=== PATIENT | female | born 1970 | race Caucasian/White ===

== ENCOUNTER 2017-10-10 13:31 | Emergency (ER) | payer SELFPAY ==
[~2017-10-10] VITALS: Ht 170.2 cm; Wt 61.4 kg
[~2017-10-10 13:31] MED LIST: ACETAMINOPHEN W1 TA6 PO; AMOXICILLIN 50500 MG PO; AMOXICILLIN 8751 TAB PO; AMOXICILLIN875 MG PO; ASPIRIN E.C. 8181 MG PO; ATIVAN 0.50.5 MG/TAB PO; ATIVAN1 MG PO; CELEXA; CIPRO 500MG TA500 MG PO; DESYREL 50MG50 MG PO; DILAUDID 2MG TAB2 MG PO; DILAUDID 4MG TAB4 MG PO; ELTROXIN PO; FLEXERIL 1010 MG/TAB PO; FLEXERIL10 MG PO; IBU-4400 MG PO; KLONOPIN 1MG1 MG PO; LEVAQUIN 750MG750 MG PO; LEVOTHYROXIN0.025 MG PO; LEVOTHYROXIN0.075 MG PO; LORTAB 5/500 501 TAB PO; METOPROLOL25 MG PO; METRONIDAZOLE500 MG PO; MVI; NO HOME MEDICATIONS; NORCO 325 MG-51 TA1 PO; NORCO 325 MG-51 TAB PO; NORCO 325 MG-7.1 TAB PO; OXYCODONE5 MG PO; PAXIL 20MG20 MG PO; PERCOCET 325 MG1 TA2 PO; PERCOCET 500 MG1 TAB PO; PHENERGAN 25 TA25 MG PO; SEROQUEL 1100 MG/TAB PO; TOPAMAX200 MG PO; TOPAMAX25 M1 PO; TOPAMAX50 MG PO; TRAMADOL50 MG PO; TYLENOL #3 301 UDTAB PO; ULTRAM 50MG TAB50 MG PO; ULTRAM ER100 MG PO; XANAX0.25 MG PO; XANAX0.5 MG PO; ZOFRAN ODT4 MG PO; ZYPREXA 5MG5 MG PO
[2017-10-10 13:37] VITALS: TEMP 97.4
[2017-10-10 14:00] LABS: COLLECTION METHOD CLEAN CATCH
[2017-10-10 14:13] LABS: PH 6 (5-8); SQUAMOUS EPITHELIAL 0-2 /hpf; URINE APPEARANCE Hazy; URINE BACTERIA None Seen /hpf; URINE BILIRUBIN Negative (NEGATIVE); URINE BLOOD 3+ (NEGATIVE); URINE COLOR Yellow; URINE GLUCOSE Negative (NEGATIVE); URINE KETONE Negative (NEGATIVE); URINE LEUKOCYTE ESTERASE Negative (NEGATIVE); URINE NITRATE Negative (NEGATIVE); URINE PROTEIN(semi-quant) Negative (NEGATIVE); URINE RBC 20-50 /hpf; URINE UROBILINOGEN Negative (NEGATIVE)
[2017-10-10 14:21] LABS: BASO # 0.1 (0.0-0.2); BASO % 1.1 % (0.0-2.0); EOS # 0.1 (0.0-0.7); EOS % 1.8 % (0-4.0); GRAN # 4.8 (1.4-6.5); GRAN % 66.5 % (42.2-75.2); HEMATOCRIT 46.1 % (37.0-47.0); HEMOGLOBIN 15.8 g/dl (12.5-16.0); LYMPH # 1.5 (1.2-3.4); LYMPH % 20.5 % (20.0-51.0); MEAN CELL VOLUME 99 fl (80.0-100.0); MEAN CORPUSCULAR HEMOGLOBIN 34 pg (27.0-31.0); MEAN CORPUSCULAR HGB CONC 34 g/dl (33.0-37.0); MEAN PLATELET VOLUME 10.3 fl (7.4-10.4); MONO # 0.7 (0.1-0.6); MONO % 9.8 % (1.7-9.3); PLATELET COUNT 237 K/mm3 (130-400); RED BLOOD COUNT 4.64 M/mm3 (4.10-5.30); REDCELL DISTRIBUTION WIDTH-CV 12.3 % (11.5-14.5)
[2017-10-10 14:36] LABS: ALANINE AMINOTRANSFERASE 395 U/L (9-52); ALBUMIN 4.7 gm/dL (3.5-5.0); ALKALINE PHOSPHATASE 76 U/L (50-136); ANION GAP 10 mmol/L (7-16); AST,SGOT 166 U/L (15-37); BILIRUBIN,TOTAL 0.8 mg/dL (0.0-1.0); BLOOD UREA NITROGEN 12 mg/dL (7-17); CALCIUM 9.9 mg/dL (8.4-10.2); CARBON DIOXIDE 27 mmol/L (22-30); CHLORIDE 102 mmol/L (98-107); CREATININE, serum 0.68 mg/dL (0.52-1.25); GLUCOSE 93 mg/dL (74-106); POTASSIUM 3.9 mmol/L (3.4-5.0); SODIUM 138 mmol/L (137-145); TOTAL PROTEIN 8.2 gm/dL (6.4-8.2)
[2017-10-10 14:40] LABS: C-REACTIVE PROTEIN < 0.5 mg/dL (0.0-0.9)
[2017-10-10] MEDS ORDERED: KLONOPIN 1MG1 MG PO (15:01)
[2017-10-10] MEDS ORDERED: ROXICODONE 55 MG/TAB PO (15:01)
[2017-10-10 15:18] VITALS: BP 114/80; PULSE 90
== END 2017-10-10 15:20 | disposition home or self-care (01) ==
LOC: COL.ER 13:31
PROVIDERS: Physician Assistant
DX: R10.9 Unspecified abdominal pain (principal); B19.20 Unspecified viral hepatitis C without hepatic coma; Z87.442 Personal history of urinary calculi
CPT/HCPCS: J2270; J2405; J7030

== ENCOUNTER 2017-10-31 18:13 | Emergency (ER) | payer SELFPAY ==
[~2017-10-31] VITALS: Ht 170.2 cm; Wt 62.7 kg
[~2017-10-31 18:13] MED LIST changes: +ROXICODONE 55 MG/TAB PO
[2017-10-31 18:31] VITALS: TEMP 98.8
[2017-10-31 19:35] LABS: BASO # 0.1 (0.0-0.2); BASO % 1.3 % (0.0-2.0); EOS # 0.3 (0.0-0.7); EOS % 3.6 % (0-4.0); GRAN # 3.8 (1.4-6.5); GRAN % 54.9 % (42.2-75.2); HEMATOCRIT 42.9 % (37.0-47.0); HEMOGLOBIN 14.7 g/dl (12.5-16.0); LYMPH # 2.1 (1.2-3.4); LYMPH % 30.3 % (20.0-51.0); MEAN CELL VOLUME 99 fl (80.0-100.0); MEAN CORPUSCULAR HEMOGLOBIN 34 pg (27.0-31.0); MEAN CORPUSCULAR HGB CONC 34 g/dl (33.0-37.0); MEAN PLATELET VOLUME 10.4 fl (7.4-10.4); MONO # 0.7 (0.1-0.6); MONO % 9.6 % (1.7-9.3); PLATELET COUNT 211 K/mm3 (130-400); RED BLOOD COUNT 4.34 M/mm3 (4.10-5.30); REDCELL DISTRIBUTION WIDTH-CV 12.2 % (11.5-14.5)
[2017-10-31 19:36] LABS: PROTHROMBIN TIME 11.2 SECONDS (9.7-12.8)
[2017-10-31 19:39] LABS: PARTIAL THROMBOPLASTIN TIME 30.6 SECONDS (26.0-37.0)
[2017-10-31 19:49] LABS: ALANINE AMINOTRANSFERASE 177 U/L (9-52); ALBUMIN 4.5 gm/dL (3.5-5.0); ALKALINE PHOSPHATASE 58 U/L (50-136); ANION GAP 9 mmol/L (7-16); AST,SGOT 80 U/L (15-37); BILIRUBIN,TOTAL 0.5 mg/dL (0.0-1.0); BLOOD UREA NITROGEN 17 mg/dL (7-17); C-REACTIVE PROTEIN 0.6 mg/dL (0.0-0.9); CALCIUM 9.5 mg/dL (8.4-10.2); CARBON DIOXIDE 22 mmol/L (22-30); CHLORIDE 107 mmol/L (98-107); CREATININE, serum 0.69 mg/dL (0.52-1.25); GLUCOSE 82 mg/dL (74-106); SODIUM 139 mmol/L (137-145); TOTAL PROTEIN 7.9 gm/dL (6.4-8.2)
[2017-10-31 20:10] LABS: TROPONIN-I < 0.012 ng/mL (0.000-0.034)
[2017-10-31] MEDS ORDERED: NORCO 325 MG-51 TAB PO (20:32)
[2017-10-31 20:48] VITALS: BP 114/78; PULSE 78
== END 2017-10-31 20:49 | disposition home or self-care (01) ==
LOC: COL.ER 18:13
PROVIDERS: Emergency Medicine
DX: R07.89 Other chest pain (principal); R07.81 Pleurodynia; F17.210 Nicotine dependence, cigarettes, uncomplicated; Z87.19 Personal history of other diseases of the digestive system; Z95.2 Presence of prosthetic heart valve; Z90.710 Acquired absence of both cervix and uterus
CPT/HCPCS: J2765; J3010; J7030

== ENCOUNTER 2018-07-03 16:44 | Emergency (ER) | payer SELFPAY ==
[~2018-07-03] VITALS: Ht 170.2 cm; Wt 50.0 kg
[~2018-07-03 16:44] MED LIST changes: +[UNRECOGNIZED DRUG - OTHER] PO
[2018-07-03 16:48] VITALS: TEMP 98.5
[2018-07-03 17:17] LABS: COLLECTION METHOD CLEAN CATCH
[2018-07-03 17:23] LABS: MUCOUS Present /lpf; PH 5 (5-8); URINE APPEARANCE Clear; URINE BACTERIA Rare /hpf; URINE BILIRUBIN Negative (NEGATIVE); URINE BLOOD Negative (NEGATIVE); URINE COLOR Red; URINE GLUCOSE Negative (NEGATIVE); URINE KETONE Negative (NEGATIVE); URINE LEUKOCYTE ESTERASE Negative (NEGATIVE); URINE NITRATE Positive (NEGATIVE); URINE PROTEIN(semi-quant) 2+ (NEGATIVE); URINE UROBILINOGEN >=4.0 mg/dL (NEGATIVE)
[2018-07-03 17:31] LABS: BASO # 0.1 (0.0-0.2); BASO % 1.3 % (0.0-2.0); EOS # 0.3 (0.0-0.7); EOS % 4.1 % (0-4.0); GRAN # 3.4 (1.4-6.5); GRAN % 54.8 % (42.2-75.2); HEMATOCRIT 38.2 % (37.0-47.0); HEMOGLOBIN 13.4 g/dl (12.5-16.0); LYMPH # 1.8 (1.2-3.4); MEAN CELL VOLUME 97 fl (80.0-100.0); MEAN CORPUSCULAR HEMOGLOBIN 34 pg (27.0-31.0); MEAN CORPUSCULAR HGB CONC 35 g/dl (33.0-37.0); MEAN PLATELET VOLUME 10.1 fl (7.4-10.4); MONO # 0.7 (0.1-0.6); MONO % 10.6 % (1.7-9.3); PLATELET COUNT 224 K/mm3 (130-400); RED BLOOD COUNT 3.95 M/mm3 (4.10-5.30); REDCELL DISTRIBUTION WIDTH-CV 11.9 % (11.5-14.5)
[2018-07-03 17:42] LABS: ALANINE AMINOTRANSFERASE 127 U/L (9-52); ALBUMIN 3.7 gm/dL (3.5-5.0); ALKALINE PHOSPHATASE 64 U/L (50-136); ANION GAP 6 mmol/L (7-16); AST,SGOT 48 U/L (15-37); BILIRUBIN,TOTAL 0.4 mg/dL (0.0-1.0); BLOOD UREA NITROGEN 30 mg/dL (7-17); CALCIUM 8.8 mg/dL (8.4-10.2); CARBON DIOXIDE 29 mmol/L (22-30); CHLORIDE 104 mmol/L (98-107); CREATININE, serum 0.58 mg/dL (0.52-1.25); GLUCOSE 111 mg/dL (74-106); POTASSIUM 3.3 mmol/L (3.4-5.0); SODIUM 139 mmol/L (137-145); TOTAL PROTEIN 6.9 gm/dL (6.4-8.2)
[2018-07-03] MEDS ORDERED: AZO URINARY PAI95 MG (17:47)
[2018-07-03 17:57] LABS: TROPONIN-I < 0.012 ng/mL (0.000-0.034)
[2018-07-03] MEDS ORDERED: CEPHALEXIN500 M1 PO (19:15)
[2018-07-03] MEDS ORDERED: NORCO 325 MG-51 TAB PO (19:15)
[2018-07-03 19:44] VITALS: BP 122/93; PULSE 76
[2018-07-03] MEDS ORDERED: ATARAX 25MG25 MG/TAB PO (20:27)
== END 2018-07-03 19:48 | disposition home or self-care (01) ==
LOC: COL.ER 16:44
PROVIDERS: Emergency Medicine
DX: R10.9 Unspecified abdominal pain (principal); R07.81 Pleurodynia
CPT/HCPCS: J2270; J2405; J7030

== ENCOUNTER 2018-07-29 13:14 | Emergency (ER) | payer SELFPAY ==
[~2018-07-29] VITALS: Ht 170.2 cm; Wt 52.3 kg
[~2018-07-29 13:14] MED LIST changes: +ATARAX 25MG25 MG/TAB PO; +AZO URINARY PAI95 MG; +CEPHALEXIN500 M1 PO
[2018-07-29 13:22] VITALS: BP 122/81; TEMP 98.2
[2018-07-29] MEDS ORDERED: OMNICEF 300MG300 MG PO ×2 (15:49→16:26)
[2018-07-29] MEDS ORDERED: CELEXA 20MG20 MG/TAB PO ×2 (15:49→16:26)
[2018-07-29] MEDS ORDERED: ATIVAN 1MG T1 MG/TAB PO (15:49)
[2018-07-29] MEDS ORDERED: NORCO 325 MG-51 TAB PO (15:49)
[2018-07-29 16:01] LABS: COLLECTION METHOD CLEAN CATCH
[2018-07-29 16:09] LABS: MUCOUS Present /lpf; PH 5 (5-8); URINE APPEARANCE Clear; URINE BACTERIA Rare /hpf; URINE BILIRUBIN Negative (NEGATIVE); URINE BLOOD 1+ (NEGATIVE); URINE COLOR Yellow; URINE GLUCOSE Negative (NEGATIVE); URINE KETONE Negative (NEGATIVE); URINE LEUKOCYTE ESTERASE Negative (NEGATIVE); URINE NITRATE Negative (NEGATIVE); URINE PROTEIN(semi-quant) Negative (NEGATIVE); URINE RBC 0-2 /hpf; URINE UROBILINOGEN Negative (NEGATIVE)
[2018-07-29 16:25] VITALS: PULSE 92
== END 2018-07-29 16:25 | disposition home or self-care (01) ==
LOC: COL.ER 13:14
PROVIDERS: Physician Assistant
DX: S02.2XXA Fracture of nasal bones, initial encounter for closed fracture (principal); S02.401A Maxillary fracture, unspecified side, initial encounter for closed fracture; S20.212A Contusion of left front wall of thorax, initial encounter; F17.210 Nicotine dependence, cigarettes, uncomplicated; F32.9 Major depressive disorder, single episode, unspecified; F41.9 Anxiety disorder, unspecified; J01.40 Acute pansinusitis, unspecified; Z90.710 Acquired absence of both cervix and uterus; Z86.19 Personal history of other infectious and parasitic diseases; T74.11XA Adult physical abuse, confirmed, initial encounter; Y92.009 Unspecified place in unspecified non-institutional (private) residence as the place of occurrence of the external cause; Y07.01 Husband, perpetrator of maltreatment and neglect
CPT/HCPCS: J2270; J7030

== ENCOUNTER 2018-08-05 12:40 | Emergency (ER) | payer SELFPAY ==
[~2018-08-05] VITALS: Ht 170.2 cm; Wt 53.7 kg
[~2018-08-05 12:40] MED LIST changes: +ATIVAN 1MG T1 MG/TAB PO; +CELEXA 20MG20 MG/TAB PO; +OMNICEF 300MG300 MG PO
[2018-08-05 12:45] VITALS: BP 133/95; TEMP 98.7
[2018-08-05 15:05] VITALS: PULSE 82
[2018-08-05] MEDS ORDERED: NORCO 325 MG-51 TAB PO (15:16)
[2018-08-05] MEDS ORDERED: FLEXERIL 1010 MG/TAB PO (15:16)
[2018-08-05] MEDS ORDERED: LIDODERM 5% PATC1 EA TP (15:16)
[2018-08-05] MEDS ORDERED: KLONOPIN 0.5MG0.5 MG PO (15:16)
== END 2018-08-05 15:28 | disposition home or self-care (01) ==
LOC: COL.ER 12:40
DX: S22.42XA Multiple fractures of ribs, left side, initial encounter for closed fracture (principal); T74.11XA Adult physical abuse, confirmed, initial encounter; F41.9 Anxiety disorder, unspecified; F32.9 Major depressive disorder, single episode, unspecified; Z88.6 Allergy status to analgesic agent; Y04.8XXA Assault by other bodily force, initial encounter; Y07.01 Husband, perpetrator of maltreatment and neglect

== ENCOUNTER 2018-12-01 18:09 | Emergency (ER) | payer SELFPAY ==
[~2018-12-01] VITALS: Ht 170.2 cm; Wt 54.5 kg
[~2018-12-01 18:09] MED LIST changes: +KLONOPIN 0.5MG0.5 MG PO; +LIDODERM 5% PATC1 EA TP
[2018-12-01 18:12] VITALS: BP 119/73; TEMP 97.7
[2018-12-01] MEDS ORDERED: LIDODERM 5% PATC1 EA TP (20:05)
[2018-12-01] MEDS ORDERED: NORCO 325 MG-51 TAB PO (20:05)
[2018-12-01 20:20] VITALS: PULSE 80
== END 2018-12-01 20:25 | disposition home or self-care (01) ==
LOC: COL.ER 18:09
DX: S22.42XA Multiple fractures of ribs, left side, initial encounter for closed fracture (principal); F41.9 Anxiety disorder, unspecified; F17.210 Nicotine dependence, cigarettes, uncomplicated; W18.39XA Other fall on same level, initial encounter; Y92.009 Unspecified place in unspecified non-institutional (private) residence as the place of occurrence of the external cause

== ENCOUNTER 2019-03-23 07:10 | Emergency (ER) | payer SELFPAY ==
[~2019-03-23] VITALS: Ht 170.2 cm; Wt 56.8 kg
[2019-03-23 07:19] VITALS: BP 141/85; TEMP 97.3
[2019-03-23 08:50] VITALS: PULSE 75
== END 2019-03-23 08:50 | disposition home or self-care (01) ==
LOC: COL.ER 07:10
DX: S01.81XA Laceration without foreign body of other part of head, initial encounter (principal); F17.210 Nicotine dependence, cigarettes, uncomplicated; W22.03XA Walked into furniture, initial encounter

== ENCOUNTER 2019-05-09 13:32 | Emergency (ER) | payer SELFPAY ==
[~2019-05-09] VITALS: Ht 170.2 cm; Wt 59.1 kg
[2019-05-09 13:38] VITALS: TEMP 98.1
[2019-05-09 13:55] LABS: COLLECTION METHOD CLEAN CATCH
[2019-05-09 14:02] LABS: MUCOUS Present /lpf; PH 5 (5-8); URINE APPEARANCE Clear; URINE BACTERIA None Seen /hpf; URINE BILIRUBIN Negative (NEGATIVE); URINE BLOOD 3+ (NEGATIVE); URINE COLOR Yellow; URINE GLUCOSE Negative (NEGATIVE); URINE KETONE Negative (NEGATIVE); URINE LEUKOCYTE ESTERASE Negative (NEGATIVE); URINE NITRATE Negative (NEGATIVE); URINE PROTEIN(semi-quant) Negative (NEGATIVE); URINE RBC >50 /hpf; URINE UROBILINOGEN Negative (NEGATIVE)
[2019-05-09 15:17] LABS: BASO # 0.1 (0.0-0.2); BASO % 1.5 % (0.0-2.0); EOS # 0.4 (0.0-0.7); EOS % 5.3 % (0-4.0); GRAN # 4.1 (1.4-6.5); GRAN % 56.8 % (42.2-75.2); HEMATOCRIT 41.3 % (37.0-47.0); HEMOGLOBIN 13.7 g/dl (12.5-16.0); LYMPH # 1.8 (1.2-3.4); LYMPH % 25.5 % (20.0-51.0); MEAN CELL VOLUME 101 fl (80.0-100.0); MEAN CORPUSCULAR HEMOGLOBIN 34 pg (27.0-31.0); MEAN CORPUSCULAR HGB CONC 33 g/dl (33.0-37.0); MEAN PLATELET VOLUME 10.6 fl (7.4-10.4); MONO # 0.8 (0.1-0.6); MONO % 10.5 % (1.7-9.3); PLATELET COUNT 224 K/mm3 (130-400); RED BLOOD COUNT 4.08 M/mm3 (4.10-5.30); REDCELL DISTRIBUTION WIDTH-CV 12.3 % (11.5-14.5)
[2019-05-09 15:22] LABS: ALBUMIN 3.7 gm/dL (3.5-5.0); BILIRUBIN,TOTAL 0.2 mg/dL (0.0-1.0); CALCIUM 9.2 mg/dL (8.4-10.2); CREATININE, serum 0.74 (0.52-1.25); POTASSIUM 4.3 mmol/L (3.4-5.0); TOTAL PROTEIN 6.7 gm/dL (6.4-8.2)
[2019-05-09] MEDS ORDERED: NORCO 325 MG-51 TAB PO (16:00)
[2019-05-09] MEDS ORDERED: PHENERGAN 25 TA25 MG PO (16:00)
[2019-05-09 16:54] VITALS: BP 118/82; PULSE 87
== END 2019-05-09 16:48 | disposition home or self-care (01) ==
LOC: COL.ER 13:32
PROVIDERS: Emergency Medicine; Family Medicine
DX: R10.13 Epigastric pain (principal); R10.31 Right lower quadrant pain; Z87.442 Personal history of urinary calculi
CPT/HCPCS: J0780; J1170; J7030; Q9967

== ENCOUNTER 2019-06-25 13:59 | Emergency (ER) | payer SELFPAY ==
[~2019-06-25] VITALS: Ht 170.2 cm; Wt 65.9 kg
[2019-06-25 14:17] VITALS: TEMP 98.4
[2019-06-25 15:18] LABS: COLLECTION METHOD CLEAN CATCH
[2019-06-25 15:21] LABS: BASO # 0.1 (0.0-0.2); BASO % 1.8 % (0.0-2.0); EOS # 0.3 (0.0-0.7); EOS % 5.1 % (0-4.0); GRAN # 3.4 (1.4-6.5); GRAN % 55.2 % (42.2-75.2); HEMATOCRIT 44.1 % (37.0-47.0); LYMPH # 1.6 (1.2-3.4); LYMPH % 25.4 % (20.0-51.0); MEAN CELL VOLUME 98 fl (80.0-100.0); MEAN CORPUSCULAR HEMOGLOBIN 33 pg (27.0-31.0); MEAN CORPUSCULAR HGB CONC 34 g/dl (33.0-37.0); MEAN PLATELET VOLUME 10.1 fl (7.4-10.4); MONO # 0.7 (0.1-0.6); MONO % 11.7 % (1.7-9.3); PLATELET COUNT 213 K/mm3 (130-400); RED BLOOD COUNT 4.52 M/mm3 (4.10-5.30); REDCELL DISTRIBUTION WIDTH-CV 11.9 % (11.5-14.5)
[2019-06-25 15:24] LABS: PH 6 (5-8); URINE APPEARANCE Hazy; URINE BACTERIA Rare /hpf; URINE BILIRUBIN Negative (NEGATIVE); URINE BLOOD 3+ (NEGATIVE); URINE COLOR Yellow; URINE GLUCOSE Negative (NEGATIVE); URINE KETONE Negative (NEGATIVE); URINE LEUKOCYTE ESTERASE Negative (NEGATIVE); URINE NITRATE Negative (NEGATIVE); URINE PROTEIN(semi-quant) Negative (NEGATIVE); URINE RBC 0-2 /hpf; URINE UROBILINOGEN Negative (NEGATIVE)
[2019-06-25 15:35] LABS: BILIRUBIN,TOTAL 0.2 mg/dL (0.0-1.0); CALCIUM 9.6 mg/dL (8.4-10.2); CREATININE, serum 0.68 (0.52-1.25); POTASSIUM 4.1 mmol/L (3.4-5.0); TOTAL PROTEIN 7.2 gm/dL (6.4-8.2)
[2019-06-25 16:23] VITALS: BP 124/70; PULSE 67
== END 2019-06-25 16:23 | disposition home or self-care (01) ==
LOC: COL.ER 13:59
PROVIDERS: Emergency Medicine
DX: R10.9 Unspecified abdominal pain (principal); F17.210 Nicotine dependence, cigarettes, uncomplicated; Z90.89 Acquired absence of other organs; Z87.442 Personal history of urinary calculi
CPT/HCPCS: J2405; J3010; J7030

== ENCOUNTER 2019-07-06 12:15 | Emergency (ER) | payer SELFPAY ==
[~2019-07-06] VITALS: Ht 167.6 cm; Wt 65.9 kg
[2019-07-06 12:57] VITALS: TEMP 98
[2019-07-06 13:22] LABS: COLLECTION METHOD CLEAN CATCH
[2019-07-06 13:46] LABS: MUCOUS Present /lpf; PH 5 (5-8); URINE APPEARANCE Clear; URINE BACTERIA None Seen /hpf; URINE BILIRUBIN Negative (NEGATIVE); URINE BLOOD 3+ (NEGATIVE); URINE COLOR Yellow; URINE GLUCOSE Negative (NEGATIVE); URINE KETONE Negative (NEGATIVE); URINE LEUKOCYTE ESTERASE Negative (NEGATIVE); URINE NITRATE Negative (NEGATIVE); URINE PROTEIN(semi-quant) Negative (NEGATIVE); URINE RBC >50 /hpf; URINE UROBILINOGEN Negative (NEGATIVE)
[2019-07-06 14:06] LABS: BASO # 0.1 (0.0-0.2); BASO % 1.3 % (0.0-2.0); EOS # 0.3 (0.0-0.7); EOS % 3.7 % (0-4.0); GRAN % 57.1 % (42.2-75.2); HEMATOCRIT 46.3 % (37.0-47.0); HEMOGLOBIN 15.5 g/dl (12.5-16.0); LYMPH # 1.9 (1.2-3.4); LYMPH % 26.6 % (20.0-51.0); MEAN CELL VOLUME 100 fl (80.0-100.0); MEAN CORPUSCULAR HEMOGLOBIN 34 pg (27.0-31.0); MEAN CORPUSCULAR HGB CONC 34 g/dl (33.0-37.0); MEAN PLATELET VOLUME 10.1 fl (7.4-10.4); MONO # 0.8 (0.1-0.6); PLATELET COUNT 242 K/mm3 (130-400); RED BLOOD COUNT 4.63 M/mm3 (4.10-5.30); REDCELL DISTRIBUTION WIDTH-CV 12.4 % (11.5-14.5)
[2019-07-06 14:29] LABS: ALANINE AMINOTRANSFERASE 441 U/L (9-52); ALBUMIN 4.4 gm/dL (3.5-5.0); ALKALINE PHOSPHATASE 69 U/L (50-136); ANION GAP 6 mmol/L (7-16); AST,SGOT 199 U/L (15-37); BILIRUBIN,TOTAL 0.6 mg/dL (0.0-1.0); BLOOD UREA NITROGEN 26 mg/dL (7-17); CALCIUM 9.5 mg/dL (8.4-10.2); CARBON DIOXIDE 30 mmol/L (22-30); CHLORIDE 103 mmol/L (98-107); GLUCOSE 67 mg/dL (74-106); SODIUM 139 mmol/L (137-145); TOTAL PROTEIN 8.1 gm/dL (6.4-8.2)
[2019-07-06 14:30] LABS: C-REACTIVE PROTEIN < 0.5 mg/dL (0.0-0.9)
[2019-07-06] MEDS ORDERED: CELEXA 20MG20 MG/TAB PO (15:16)
[2019-07-06] MEDS ORDERED: PHENERGAN 25 TA25 MG PO (15:51)
[2019-07-06] MEDS ORDERED: NORCO 325 MG-7.1 TAB PO (15:51)
[2019-07-06] MEDS ORDERED: CEPHALEXIN500 M1 PO (15:53)
[2019-07-06 16:21] VITALS: BP 132/94; PULSE 76
== END 2019-07-06 16:30 | disposition home or self-care (01) ==
LOC: COL.ER 12:15
PROVIDERS: Emergency Medicine; Physician Assistant
DX: N23 Unspecified renal colic (principal); Z87.442 Personal history of urinary calculi
CPT/HCPCS: J1170; J2270; J2405; J7030

== ENCOUNTER 2019-07-09 13:46 | Emergency (ER) | payer SELFPAY ==
[~2019-07-09] VITALS: Ht 167.6 cm; Wt 65.9 kg
[2019-07-09 13:51] VITALS: BP 127/95; TEMP 97.8
[2019-07-09 14:19] LABS: COLLECTION METHOD CLEAN CATCH
[2019-07-09 14:25] LABS: BASO # 0.1 (0.0-0.2); BASO % 1.7 % (0.0-2.0); EOS # 0.2 (0.0-0.7); EOS % 3.4 % (0-4.0); GRAN # 3.4 (1.4-6.5); GRAN % 58.7 % (42.2-75.2); HEMOGLOBIN 16.1 g/dl (12.5-16.0); LYMPH # 1.5 (1.2-3.4); MEAN CELL VOLUME 99 fl (80.0-100.0); MEAN CORPUSCULAR HEMOGLOBIN 33 pg (27.0-31.0); MEAN CORPUSCULAR HGB CONC 34 g/dl (33.0-37.0); MEAN PLATELET VOLUME 9.9 fl (7.4-10.4); MONO # 0.6 (0.1-0.6); PLATELET COUNT 253 K/mm3 (130-400); RED BLOOD COUNT 4.86 M/mm3 (4.10-5.30); REDCELL DISTRIBUTION WIDTH-CV 12.4 % (11.5-14.5)
[2019-07-09 14:27] LABS: MUCOUS Present /lpf; PH 5 (5-8); URINE APPEARANCE Hazy; URINE BACTERIA None Seen /hpf; URINE BILIRUBIN Negative (NEGATIVE); URINE BLOOD 3+ (NEGATIVE); URINE COLOR Yellow; URINE GLUCOSE Negative (NEGATIVE); URINE KETONE Negative (NEGATIVE); URINE LEUKOCYTE ESTERASE Negative (NEGATIVE); URINE NITRATE Negative (NEGATIVE); URINE PROTEIN(semi-quant) Negative (NEGATIVE); URINE RBC >50 /hpf; URINE UROBILINOGEN Negative (NEGATIVE)
[2019-07-09 14:41] LABS: ALANINE AMINOTRANSFERASE 456 U/L (9-52); ALBUMIN 4.5 gm/dL (3.5-5.0); ALKALINE PHOSPHATASE 76 U/L (50-136); ANION GAP 9 mmol/L (7-16); AST,SGOT 195 U/L (15-37); BILIRUBIN,TOTAL 0.4 mg/dL (0.0-1.0); BLOOD UREA NITROGEN 22 mg/dL (7-17); CALCIUM 9.5 mg/dL (8.4-10.2); CARBON DIOXIDE 27 mmol/L (22-30); CHLORIDE 103 mmol/L (98-107); CREATININE, serum 0.69 (0.52-1.25); GLUCOSE 104 mg/dL (74-106); LIPASE 62 U/L (23-300); POTASSIUM 3.8 mmol/L (3.4-5.0); SODIUM 139 mmol/L (137-145); TOTAL PROTEIN 8.3 gm/dL (6.4-8.2)
[2019-07-09 14:42] LABS: C-REACTIVE PROTEIN < 0.5 mg/dL (0.0-0.9)
[2019-07-09] MEDS ORDERED: OMNICEF 300MG300 MG PO (15:28)
[2019-07-09] MEDS ORDERED: NORCO 325 MG-51 TAB PO (15:28)
[2019-07-09 16:35] VITALS: PULSE 90
== END 2019-07-09 16:32 | disposition home or self-care (01) ==
LOC: COL.ER 13:46
PROVIDERS: Family Medicine
DX: N39.0 Urinary tract infection, site not specified (principal); N12 Tubulo-interstitial nephritis, not specified as acute or chronic; F17.210 Nicotine dependence, cigarettes, uncomplicated; Z90.710 Acquired absence of both cervix and uterus; Z87.442 Personal history of urinary calculi
CPT/HCPCS: A4216; J0696; J2270; J2405; J7030; Q9967

== ENCOUNTER 2019-10-25 11:00 | Emergency (ER) | payer SELFPAY ==
[~2019-10-25] VITALS: Ht 170.2 cm; Wt 68.2 kg
[2019-10-25 11:03] VITALS: TEMP 97.9
[2019-10-25] MEDS ORDERED: FLEXERIL 1010 MG/TAB PO ×2 (11:10→13:36)
[2019-10-25 12:44] LABS: BASO # 0.1 (0.0-0.2); BASO % 1.1 % (0.0-2.0); EOS # 0.1 (0.0-0.7); EOS % 1.2 % (0-4.0); GRAN # 7.3 (1.4-6.5); GRAN % 72.8 % (42.2-75.2); HEMATOCRIT 45.6 % (37.0-47.0); HEMOGLOBIN 15.6 g/dl (12.5-16.0); LYMPH # 1.8 (1.2-3.4); LYMPH % 18.1 % (20.0-51.0); MEAN CELL VOLUME 95 fl (80.0-100.0); MEAN CORPUSCULAR HEMOGLOBIN 33 pg (27.0-31.0); MEAN CORPUSCULAR HGB CONC 34 g/dl (33.0-37.0); MONO # 0.7 (0.1-0.6); MONO % 6.5 % (1.7-9.3); PLATELET COUNT 441 K/mm3 (130-400); RED BLOOD COUNT 4.78 M/mm3 (4.10-5.30); REDCELL DISTRIBUTION WIDTH-CV 12.6 % (11.5-14.5)
[2019-10-25 12:56] LABS: ALBUMIN 4.5 gm/dL (3.5-5.0); BILIRUBIN,TOTAL 0.3 mg/dL (0.0-1.0); CALCIUM 9.9 mg/dL (8.4-10.2); CREATININE, serum 0.57 (0.52-1.25); POTASSIUM 4.3 mmol/L (3.4-5.0); TOTAL PROTEIN 8.1 gm/dL (6.4-8.2)
[2019-10-25] MEDS ORDERED: NORCO 325 MG-7.1 TAB PO (13:36)
[2019-10-25 13:48] VITALS: BP 110/79; PULSE 89
== END 2019-10-25 13:51 | disposition home or self-care (01) ==
LOC: COL.ER 11:00
PROVIDERS: Physician Assistant
DX: J90 Pleural effusion, not elsewhere classified (principal); R07.81 Pleurodynia; Z90.710 Acquired absence of both cervix and uterus; F17.210 Nicotine dependence, cigarettes, uncomplicated
CPT/HCPCS: J1170; J2405; J7030

== ENCOUNTER 2019-11-01 11:43 | Emergency (ER) | payer SELFPAY ==
[~2019-11-01] VITALS: Ht 170.2 cm; Wt 59.0 kg
[2019-11-01 12:33] VITALS: BP 121/92; TEMP 97.8
[2019-11-01] MEDS ORDERED: ZITHROMAX Z PA250 MG PO (15:16)
[2019-11-01 15:46] VITALS: PULSE 85
== END 2019-11-01 15:46 | disposition home or self-care (01) ==
LOC: COL.ER 11:43
DX: J40 Bronchitis, not specified as acute or chronic (principal); R07.89 Other chest pain; F17.210 Nicotine dependence, cigarettes, uncomplicated
CPT/HCPCS: J1170; J2550